=== PATIENT | female | born 1985 | race Two or more races ===

== ENCOUNTER 2020-09-18 18:11 | Emergency (ER) | payer SELFPAY ==
[2020-09-18 18:17] VITALS: BP 126/84; PULSE 118; TEMP 98; BMI 34.7
[2020-09-18] MEDS ORDERED: KETOROLAC TROMETHAMINE 30 MG/1 ML VIAL IM ONE (19:31)
[2020-09-18] MEDS ORDERED: LIDOCAINE 5% TOPICAL PATCH TP ONE (19:31)
[2020-09-18] MEDS ORDERED: KETOROLAC TROMETHAMINE 30 MG/1 ML VIAL ONE (19:43)
[2020-09-18] MEDS ORDERED: LIDOCAINE 5% TOPICAL PATCH ONE (19:43)
[2020-09-19] MEDS ORDERED: LIDOCAINE PATCH REMOVAL MC ONE (08:00)
== END 2020-09-18 19:59 | disposition home or self-care (01) ==
LOC: JERFT 18:11
PROC: 3E0233Z Introduction of Anti-inflammatory into Muscle, Percutaneous Approach (ICD-10-PCS; principal; 2020-09-18)
DX: G57.11 Meralgia paresthetica, right lower limb (principal); M54.5 Low back pain
CPT/HCPCS: 99284-25